=== PATIENT | male | born 1980 | race Caucasian/White ===

== ENCOUNTER 2019-01-23 10:57 | Emergency (ER) | payer BC ==
--- NOTE | 2019-01-23 12:26 | UC ---
General HPI - HPI Summary HPI Summary: pt states he got an elbow to his L ribs Wednesday while playing some basketball. he played another game after; however, today he is finding it hard to work due to his L rib pain because he can not lift. also, any type of deep breath is difficult due to the pain as well. he decided to come in because of the pain plus he felt lightheaded while at work. he denies any rest SOB, coughing up blood and abdominal pain. - History of Current Complaint Chief Complaint: UCGeneralIllness Stated Complaint: LEFT RIB INJURY Time Seen by Provider: 01/23/19 12:06 Hx Obtained From: Patient Pain Intensity: 5 Aggravating: movement Alleviating: rest - Allergy/Home Medications Allergies/Adverse Reactions: Allergies Allergy/AdvReac Type Severity Reaction Status Date / Time No Known Allergies Allergy Verified 01/23/19 11:21 Home Medications: Home Medications NK [No Home Medications Reported] 01/23/19 [History Confirmed 01/23/19] PMH/Surg Hx/FS Hx/Imm Hx Previously Healthy: Yes - Surgical History Surgical History: None - Family History Known Family History: Positive: Non-Contributory - Social History Occupation: Employed Full-time Alcohol Use: Occasionally Substance Use Type: None Smoking Status (MU): Never Smoked Tobacco Review of Systems All Other Systems Reviewed And Are Negative: Yes Constitutional: Negative: Fever Respiratory: Negative: Cough Cardiovascular: Negative: Palpitations, Chest Pain Gastrointestinal: Negative: Abdominal Pain Musculoskeletal: Positive: Other: - L rib pain Physical Exam Triage Information Reviewed: Yes Appearance: Well-Appearing Vital Signs: Initial Vital Signs Temp 98.4 F 01/23/19 11:16 Pulse 83 01/23/19 11:16 Resp 18 01/23/19 11:16 BP 114/74 01/23/19 11:16 Pulse Ox 99 01/23/19 11:16 Vital Signs Reviewed: Yes Eyes: Positive: Conjunctiva Clear ENT: Positive: Normal ENT inspection Neck: Positive: Supple Respiratory: Positive: Lungs clear, Normal breath sounds, No accessory muscle use, Other: - L anterior - inferior rib tenderness without crepitation or instability. no subQ emphysema. Cardiovascular: Positive: RRR, No Murmur Abdomen Description: Positive: Other: - + BS. Soft. Tender to deep palpation LUQ. No masses, HSM or CVA tenderness. No pulsatile mass or CVA tenderness. Pt seated at 30 degress on exam table with knees flexed for exam. He is unable to sit upright without having LUQ/rib pain. Musculoskeletal: Positive: ROM Intact Neurological: Positive: Alert Psychological: Positive: Age Appropriate Behavior Skin Exam: Normal Diagnostics - Laboratory Lab Results: FS BS = 79 - Radiology No standard instances Radiology Interpretation Completed By: Radiologist - rib films= Negative exam. Re-Evaluation - Re-Evaluation First Eval Re-Evaluation Time: 12:30 Change: Worse - Upon entering pt's room, I found the pt kneeling by the chair and supporting himself on the chair. He was pale, diaphoretic and confused(slow to respond). pt states he was seated on the bench chair when he suddenly "didn' t feel well" and then found himself on the floor. he denies any injuries including biting his tongue. he also denied incontinence. pt remained on the floor do to extreme weakness and feeling lightheaded. He did become more alert and back to baseline over the next several minutes. The diaphoresis resolved and he became pink again. repeat VS showed a transient drop in HR and BP but that improved prior to transfer. REPEAT PE: head, neck, back, pelvis and extremities without deformity or tenderness. Cor=Regular 60. BS =/clear. L anterior inferior ribs remained tender but without instability. Abdomen: continued focal tenderness LUQ, pt unable to sit up and lye flat due to the LUQ pain(pillow placed behind head/upper back). CN=grossly intact and gross s/v/m intact x4. Course/Dx - Course Course Of Treatment: Case d/w Dr Stanton and then radiology and U/S of spleen ordered. at pt request, I called his son who will meet him at the ER. [facility] ER called. Report including hx, initial PE, repeat PE and xray result given to Dr Vidal. I advised that i feel the pt has a splenic injury until proven not. Pt agreed to ER transfer via EMS. EMS providers assisted pt to his feet and walked pt to their stretcher. CRITICAL CARE TIME OF 15 MINUTES. - Differential Dx - Multi-Symptom Differential Diagnoses: Other - chest wall contusion, rib fx's, ptx, pumonary contusion, abdominal wall contusion, splenic injury. ribfilms unremarkable and pain out of proportion to chest/abdominal contusion thus I feel this is a splenic injury until proven not. no hypoglycemia. there may have been a syncopal episode that was not witnessed. doubtful any seizure, no hx. - Diagnoses Provider Diagnosis: Chest wall pain, Abdominal pain Discharge - Sign-Out/Discharge Documenting (check all that apply): Patient Departure All imaging exams completed and their final reports reviewed: Yes - Discharge Plan Condition: Stable Disposition: TRANS HIGHER LVL OF CARE FAC Referrals: No Primary Care Phys,NOPCP [Primary Care Provider] - - Billing Disposition and Condition Condition: STABLE Disposition: Trans Higher Lvl of Care Fac
[2019-01-23 12:57] VITALS: BP 129/79
[2019-01-23] MEDS ORDERED: NS 0.9% 1000 ML** 1,000 ML IV ONE (13:24)
== END 2019-01-23 12:53 | disposition short-term general hospital (02) ==
LOC: UCCORT 10:57
DX: R07.89 Other chest pain (principal); R10.11 Right upper quadrant pain
CPT/HCPCS: 99203; G0463